=== PATIENT | male | born 1985 | race Caucasian/White ===

== ENCOUNTER 2018-05-02 12:20 | Day surgery (SDC) | payer OTHER ==
--- NOTE | 2018-04-30 18:49 | HP ---
CC: Dr. Gómez; Josep Medeiros MD * ADMITTING HISTORY AND PHYSICAL: DATE OF ADMISSION: 05/02/18 ADMITTING DIAGNOSES: 1. Calculus, left ureter. 2. Left hydronephrosis. PLANNED PROCEDURE: Left ureteroscopy, possible laser and stent insertion. HISTORY OF PRESENT ILLNESS: Erick Rojas is a 33-year-old gentleman who was initially evaluated last week because of left flank pain and nausea, which at that time I suspected was secondary to a calculus in the left ureter. Ultrasound at that time revealed very mild left hydronephrosis, but no definite stones are seen and he was managed as a left ureteral calculus patient with increased hydration and analgesics. He returned now with increasing left flank pain and was noted to have some progression of the hydronephrosis and 6 mm calculus was noted in the left distal ureter. I have recommended that he wait another 48 hours at least if he can pass the calculus and if he cannot, then the plan is for left ureteroscopy, possible laser and stent insertion. PAST MEDICAL HISTORY: Significant for depression. PAST SURGICAL HISTORY: Significant for wisdom teeth extraction. MEDICATIONS ON ADMISSION: Prozac 20 mg daily. In addition, I will give him a prescription for Percocet because of the increasing pain. ALLERGIES: No known drug allergies. FAMILY HISTORY: His mother has kidney stones. SMOKING HISTORY: He is a former smoker with a 10-pack year smoking history who quit 2 years ago. REVIEW OF SYSTEMS: He is otherwise in excellent health. There is no history of diabetes mellitus or any other major systemic illness. PHYSICAL EXAMINATION GENERAL: Reveals a pleasant, uncomfortable-appearing young gentleman. VITAL SIGNS: Blood pressure is 130/80, pulse 88 per minute, regular, temperature 97.4, oxygen saturation 99% on room air. LUNGS: Clear bilaterally. CARDIOVASCULAR EXAM: Regular rate and rhythm. S1, S2. ABDOMEN: Soft with left flank tenderness. IMPRESSION: A 33-year-old gentleman with increasing left flank pain secondary to a calculus in the left distal ureter. PLAN: Planned procedure is left ureteroscopy, possible laser and stent insertion. [id number]/[facility] #: [id number] MTDD
[2018-05-02] MEDS ORDERED: cefTRIAXone(*) 2 GM ADDV.VIAL IVPB ONE (13:10)
[2018-05-02] MEDS ORDERED: Sodium Citrate/Citric Acid* 15 ML UDC ONE (13:10)
[2018-05-02] MEDS ORDERED: Midazolam* 1 MG/ML 2 ML VIAL (2 MG) ONE (14:01)
[2018-05-02] MEDS ORDERED: Lidocaine 2% PF * 5 ML VIAL ONE (14:01)
[2018-05-02] MEDS ORDERED: Propofol* 10 MG/ML 20 ML BTL ONE ×2 (14:01→14:53)
[2018-05-02] MEDS ORDERED: fentaNYL* 50 MCG/ML 2 ML VIAL (100 MCG VIAL) ONE ×2 (14:01→15:33)
[2018-05-02] MEDS ORDERED: Ketorolac INJ* 30 MG/ML 1 ML VIAL IV PRN (15:02)
[2018-05-02] MEDS ORDERED: Naloxone* 0.4 MG/ML 1 ML VIAL IV PRN (15:02)
[2018-05-02] MEDS ORDERED: fentaNYL* 50 MCG/ML 2 ML VIAL (100 MCG VIAL) IV PRN (15:02)
[2018-05-02] MEDS ORDERED: Ondansetron INJ* 2 MG/ML VIAL IV PRN (15:02)
[2018-05-02] MEDS ORDERED: Tamsulosin CAP* 0.4 MG ONE (15:20)
[2018-05-02] MEDS ORDERED: Ketorolac INJ* 30 MG/ML 1 ML VIAL ONE (15:33)
[2018-05-02 16:59] VITALS: BP 130/87
--- NOTE | 2018-05-03 00:32 | OP ---
DATE OF OPERATION: 05/02/18 - SDS DATE OF : [birth year] - AGE: 33 years, male. SURGEON: Josep Medeiros MD ANESTHESIOLOGIST: Dr. Mata. ANESTHESIA: General. PRE-OP DIAGNOSES: 1. Left hydronephrosis. 2. Calculus, left ureter. POST-OP DIAGNOSES: 1. Left hydronephrosis. 2. Calculus, left ureter. OPERATIVE PROCEDURE: Cystoscopy, left retrograde pyelogram, left ureteroscopy and stone extraction, and left stent insertion. COMPLICATIONS: None. STENT USED: A 7-Cuban stent, left ureter. OPERATIVE FINDINGS: Extensive edema and inflammation surrounding left orifice with 5 mm calculus at left ureterovesical junction. POSTOPERATIVE CONDITION: Stable. INDICATIONS: Erick Rojas is a 33-year-old gentleman with persistent left flank pain secondary to a calculus noted in the left distal ureter. DESCRIPTION OF PROCEDURE: After induction of general anesthesia, the patient was placed in dorsal lithotomy position. Sequential compression devices were in place and functioning. Initial cystoscopy revealed normal appearing urethra with a mildly elevated bladder neck. The bladder was examined. There was significant edema and inflammation surrounding the left side of the trigone. A guidewire was introduced into the left ureter and after some initial manipulation, was advanced proximally. Retrograde pyelogram revealed mild fullness of the left collecting system. A 6-Cuban semi-rigid ureteroscope was introduced and advanced under direct vision. In the distal ureter close to the ureterovesical junction, approximately 5 mm calculus was noted with surrounding inflammatory response. Using a three-pronged grasper, this was retrieved and sent for analysis. No additional stones were seen. A 7-Cuban stent was introduced and positioned under fluoroscopy with good proximal and distal positioning obtained. The bladder was emptied. The patient tolerated the procedure satisfactorily and was transferred back to the recovery area in stable condition. [id number]/[facility] #: [id number] MTDD
== END 2018-05-02 16:40 | disposition home or self-care (01) ==
LOC: OR 12:20
PROVIDERS: ATTEND Urology
DX: N13.2 Hydronephrosis with renal and ureteral calculous obstruction (principal); Z87.891 Personal history of nicotine dependence; F32.9 Major depressive disorder, single episode, unspecified
CPT/HCPCS: 74420; 82365; 88300; A9270-GY; C1876; J0696; J1885; J2250; J2704; J3010